=== PATIENT | female | born 1945 | race Caucasian/White ===

== ENCOUNTER → 2023-12-02 08:30 | Outpatient (REF) | payer MEDICARE, OTHER, SELFPAY ==
[2023-12-02 13:08] LABS: % Basophils 0.9 % (0-2); % Eosinophils 1.9 % (0-6); % Immature Granulocytes 0.2 % (0-0.5); % Monocytes 12.6 % (1.7-9.3); % Neutrophils 53.4 % (42.2-75.2); Absolute Basophils 0.1 10^3/uL (0-0.2); Absolute Eosinophils 0.1 10^3/uL (0-0.7); Absolute Lymphocytes 1.8 10^3/uL (1.2-3.4); Absolute Monocytes 0.7 10^3/uL (0.1-0.6); Absolute Neutrophils 3.1 10^3/uL (1.4-6.5); Hematocrit 37.2 % (37.0-47.0); Hemoglobin 12.1 g/dL (12.0-16.0); Mean Corp Hgb Conc. 32.5 g/dL (33.0-37.0); Mean Corpuscular Hgb 31.7 pg (27.0-31.0); Mean Corpuscular Volume 97.4 fL (81.0-99.0); Mean Platelet Volume 10.3 fL (7.4-10.4); Nucleated Red Blood Cells % 0 %; Platelet Count 195 10^3/uL (130-400); Red Blood Cell Count 3.82 10^6/uL (4.20-5.40); Red Cell Dist. Width 14.2 % (11.5-14.5); White Blood Cell Count 5.9 10^3/uL (4.8-10.8)
[2023-12-02 14:27] LABS: ALT (SGPT) 20 U/L (0-35); AST (SGOT) 31 U/L (14-36); Albumin 4.5 g/dl (3.5-5.0); Alkaline Phosphatase 67 U/L (38-126); Blood Urea Nitrogen 19 mg/dl (7-17); Calcium 9.5 mg/dl (8.4-10.2); Carbon Dioxide 28 mmol/L (22-30); Chloride 100 mmol/L (98-107); Glucose 84 mg/dl (70-99); HDL Cholesterol 71 mg/dl; LDL Cholesterol, Calculated 96 mg/dl; Potassium 4.3 mmol/L (3.5-5.1); Sodium 139 mmol/L (135-145); Total Bilirubin 0.8 mg/dl (0.2-1.3); Total Cholesterol 191 mg/dl (50-199); Total Protein 7.4 g/dl (6.3-8.2); Triglyceride 124 mg/dl (10-149); Very Low Density Lipoprotein 24 mg/dl (0-30); eGFR > 60.00
== END ==
LOC: HWLAB 08:30
PROVIDERS: ATTENDING PHYSICIAN Nurse Practitioner Adult Health
DX: I48.91 Unspecified atrial fibrillation (principal); I10 Essential (primary) hypertension
CPT/HCPCS: 36415; 80053; 80061; 85025

== ENCOUNTER → 2024-02-11 08:31 | Outpatient (REF) | payer MEDICARE, OTHER, SELFPAY ==
[2024-02-11 10:05] LABS: % Basophils 0.7 % (0-2); % Immature Granulocytes 0.2 % (0-0.5); % Lymphocytes 33.3 % (20.5-51.1); % Monocytes 13.3 % (1.7-9.3); % Neutrophils 50.5 % (42.2-75.2); Absolute Eosinophils 0.1 10^3/uL (0-0.7); Absolute Lymphocytes 1.8 10^3/uL (1.2-3.4); Absolute Monocytes 0.7 10^3/uL (0.1-0.6); Absolute Neutrophils 2.7 10^3/uL (1.4-6.5); Hematocrit 38.1 % (37.0-47.0); Hemoglobin 12.2 g/dL (12.0-16.0); Mean Corpuscular Hgb 31.2 pg (27.0-31.0); Mean Corpuscular Volume 97.4 fL (81.0-99.0); Mean Platelet Volume 9.9 fL (7.4-10.4); Nucleated Red Blood Cells % 0 %; Platelet Count 177 10^3/uL (130-400); Red Blood Cell Count 3.91 10^6/uL (4.20-5.40); Red Cell Dist. Width 13.4 % (11.5-14.5); White Blood Cell Count 5.4 10^3/uL (4.8-10.8)
[2024-02-11 11:19] LABS: NT-proBNP 2390 pg/ml
[2024-02-11 12:14] LABS: ALT (SGPT) 23 U/L (0-35); AST (SGOT) 35 U/L (14-36); Albumin 4.5 g/dl (3.5-5.0); Alkaline Phosphatase 67 U/L (38-126); Blood Urea Nitrogen 18 mg/dl (7-17); Calcium 9.3 mg/dl (8.4-10.2); Carbon Dioxide 30 mmol/L (22-30); Chloride 103 mmol/L (98-107); Glucose 79 mg/dl (70-99); HDL Cholesterol 71 mg/dl; LDL Cholesterol, Calculated 107 mg/dl; Potassium 4.6 mmol/L (3.5-5.1); Sodium 141 mmol/L (135-145); Total Bilirubin 0.5 mg/dl (0.2-1.3); Total Cholesterol 194 mg/dl (50-199); Total Protein 7.4 g/dl (6.3-8.2); Triglyceride 82 mg/dl (10-149); Very Low Density Lipoprotein 16 mg/dl (0-30); eGFR > 60.00
== END ==
LOC: HWLAB 08:31
PROVIDERS: ATTENDING PHYSICIAN Internal Medicine Cardiovascular Disease; FAMILY PHYSICIAN Nurse Practitioner Adult Health
DX: I10 Essential (primary) hypertension (principal)
CPT/HCPCS: 80053; 80061; 83880; 85025

== ENCOUNTER → 2024-07-12 08:27 | Outpatient (REF) | payer MEDICARE, OTHER, SELFPAY ==
[2024-07-12 10:38] LABS: ALT (SGPT) 21 U/L (0-35); AST (SGOT) 29 U/L (14-36); Albumin 4.5 g/dl (3.5-5.0); Alkaline Phosphatase 60 U/L (38-126); Blood Urea Nitrogen 19 mg/dl (7-17); Calcium 9.2 mg/dl (8.4-10.2); Carbon Dioxide 25 mmol/L (22-30); Chloride 103 mmol/L (98-107); Glucose 86 mg/dl (70-99); HDL Cholesterol 66 mg/dl; LDL Cholesterol, Calculated 123 mg/dl; Potassium 4.4 mmol/L (3.5-5.1); Sodium 142 mmol/L (135-145); Total Bilirubin 0.5 mg/dl (0.2-1.3); Total Cholesterol 215 mg/dl (50-199); Total Protein 7.2 g/dl (6.3-8.2); Triglyceride 133 mg/dl (10-149); Very Low Density Lipoprotein 26 mg/dl (0-30); eGFR > 60.00
[2024-07-12 10:40] LABS: NT-proBNP 1880 pg/ml
[2024-07-12 11:03] LABS: TSH 2.78 uIU/ml (0.47-4.68)
== END ==
LOC: HWLAB 08:27
PROVIDERS: ATTENDING PHYSICIAN Internal Medicine Cardiovascular Disease; FAMILY PHYSICIAN Nurse Practitioner Adult Health
DX: I48.92 Unspecified atrial flutter (principal); R93.3 Abnormal findings on diagnostic imaging of other parts of digestive tract; R93.89 Abnormal findings on diagnostic imaging of other specified body structures
CPT/HCPCS: 36415; 80053; 80061; 83880; 84443

== ENCOUNTER → 2024-09-16 12:27 | Outpatient (REF) | payer MEDICARE, OTHER, SELFPAY | LOC: EMG 12:27 | PROVIDERS: ATTENDING PHYSICIAN Orthopaedic Surgery Hand Surgery; FAMILY PHYSICIAN Nurse Practitioner Adult Health | DX: M79.641 Pain in right hand (principal); R20.0 Anesthesia of skin | CPT/HCPCS: 95886; 95910 ==

== ENCOUNTER → 2024-10-26 12:02 | Outpatient (REF) | payer MEDICARE, OTHER, SELFPAY ==
[2024-10-26 16:02] LABS: % Basophils 0.4 % (0-2); % Eosinophils 0.9 % (0-6); % Immature Granulocytes 0.2 % (0-0.5); % Lymphocytes 23.9 % (20.5-51.1); % Monocytes 11.9 % (1.7-9.3); % Neutrophils 62.7 % (42.2-75.2); Absolute Eosinophils 0.1 10^3/uL (0-0.7); Absolute Lymphocytes 1.4 10^3/uL (1.2-3.4); Absolute Monocytes 0.7 10^3/uL (0.1-0.6); Absolute Neutrophils 3.6 10^3/uL (1.4-6.5); Hematocrit 40.7 % (37.0-47.0); Hemoglobin 13.3 g/dL (12.0-16.0); Mean Corp Hgb Conc. 32.7 g/dL (33.0-37.0); Mean Corpuscular Volume 98.1 fL (81.0-99.0); Nucleated Red Blood Cells % 0 %; Platelet Count 175 10^3/uL (130-400); Red Blood Cell Count 4.15 10^6/uL (4.20-5.40); Red Cell Dist. Width 13.8 % (11.5-14.5); White Blood Cell Count 5.7 10^3/uL (4.8-10.8)
[2024-10-26 16:12] LABS: Blood Urea Nitrogen 22 mg/dl (7-17); Calcium 9.3 mg/dl (8.4-10.2); Carbon Dioxide 31 mmol/L (22-30); Chloride 98 mmol/L (98-107); Glucose 84 mg/dl (70-99); Potassium 4.5 mmol/L (3.5-5.1); Sodium 138 mmol/L (135-145); eGFR > 60.00
== END ==
LOC: HWCARD 12:02
PROVIDERS: ATTENDING PHYSICIAN Orthopaedic Surgery Hand Surgery; FAMILY PHYSICIAN Nurse Practitioner Adult Health
DX: Z01.818 Encounter for other preprocedural examination (principal)
CPT/HCPCS: 36415; 80048; 85025; 93005

== ENCOUNTER → 2024-11-01 12:35 | Outpatient (REF) | payer MEDICARE, OTHER, SELFPAY ==
[2024-11-01 15:48] LABS: ALT (SGPT) 22 U/L (0-35); AST (SGOT) 31 U/L (14-36); Albumin 4.9 g/dl (3.5-5.0); Alkaline Phosphatase 62 U/L (38-126); Blood Urea Nitrogen 19 mg/dl (7-17); Calcium 9.1 mg/dl (8.4-10.2); Carbon Dioxide 29 mmol/L (22-30); Chloride 98 mmol/L (98-107); Glucose 89 mg/dl (70-99); Potassium 4.5 mmol/L (3.5-5.1); Sodium 137 mmol/L (135-145); Total Bilirubin 0.8 mg/dl (0.2-1.3); Total Protein 7.6 g/dl (6.3-8.2); eGFR > 60.00
[2024-11-01 15:50] LABS: % Basophils 0.7 % (0-2); % Eosinophils 1.2 % (0-6); % Immature Granulocytes 0.2 % (0-0.5); % Lymphocytes 25.1 % (20.5-51.1); % Monocytes 11.9 % (1.7-9.3); % Neutrophils 60.9 % (42.2-75.2); Absolute Eosinophils 0.1 10^3/uL (0-0.7); Absolute Lymphocytes 1.5 10^3/uL (1.2-3.4); Absolute Monocytes 0.7 10^3/uL (0.1-0.6); Absolute Neutrophils 3.6 10^3/uL (1.4-6.5); Hematocrit 41.1 % (37.0-47.0); Hemoglobin 13.5 g/dL (12.0-16.0); Mean Corp Hgb Conc. 32.8 g/dL (33.0-37.0); Mean Corpuscular Hgb 31.9 pg (27.0-31.0); Mean Corpuscular Volume 97.2 fL (81.0-99.0); Mean Platelet Volume 10.1 fL (7.4-10.4); NT-proBNP 2190 pg/ml; Nucleated Red Blood Cells % 0 %; Platelet Count 188 10^3/uL (130-400); Red Blood Cell Count 4.23 10^6/uL (4.20-5.40); Red Cell Dist. Width 13.6 % (11.5-14.5); White Blood Cell Count 5.8 10^3/uL (4.8-10.8)
== END ==
LOC: HWLAB 12:35
PROVIDERS: ATTENDING PHYSICIAN Internal Medicine Cardiovascular Disease; FAMILY PHYSICIAN Nurse Practitioner Adult Health
DX: I48.91 Unspecified atrial fibrillation (principal); I48.92 Unspecified atrial flutter; I10 Essential (primary) hypertension; E78.2 Mixed hyperlipidemia
CPT/HCPCS: 36415; 80053; 83880; 85025

== ENCOUNTER → 2025-08-30 10:33 | Outpatient (REF) | payer MEDICARE, OTHER, SELFPAY ==
[2025-08-30 16:10] LABS: Hematocrit 36.3 % (37.0-47.0); Hemoglobin 11.9 g/dL (12.0-16.0); Mean Corp Hgb Conc. 32.8 g/dL (33.0-37.0); Mean Corpuscular Volume 96.0 fL (81.0-99.0); Nucleated Red Blood Cells % 0 %; Platelet Count 162 10^3/uL (130-400); Red Cell Dist. Width 13.7 % (11.5-14.5)
[2025-08-30 16:20] LABS: ALT (SGPT) 24 U/L (0-35); AST (SGOT) 34 U/L (14-36); Albumin 4.3 g/dl (3.5-5.0); Alkaline Phosphatase 60 U/L (38-126); Blood Urea Nitrogen 15 mg/dl (7-17); Calcium 9.1 mg/dl (8.4-10.2); Carbon Dioxide 29 mmol/L (22-30); Chloride 103 mmol/L (98-107); Glucose 83 mg/dl (70-99); HDL Cholesterol 60 mg/dl; LDL Cholesterol, Calculated 117 mg/dl; Potassium 4.5 mmol/L (3.5-5.1); Sodium 136 mmol/L (135-145); Total Protein 7.2 g/dl (6.3-8.2); Very Low Density Lipoprotein 14 mg/dl (0-30); eGFR > 60.00
== END ==
LOC: HWLAB 10:33
PROVIDERS: ATTENDING PHYSICIAN Internal Medicine Cardiovascular Disease; FAMILY PHYSICIAN Nurse Practitioner Adult Health
DX: I48.91 Unspecified atrial fibrillation (principal); I10 Essential (primary) hypertension; E78.2 Mixed hyperlipidemia
CPT/HCPCS: 36415; 80053; 80061; 83880; 85025